=== PATIENT | male | born 1955 | race Caucasian/White ===

== ENCOUNTER 2018-11-09 17:43 | Emergency (ER) | payer OTHER ==
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
[2018-11-09 19:03] LABS: ABS Basophils 0 10^3/ul (0-0.2); ABS Eosinophils 0.1 10^3/ul (0-0.6); ABS Lymphocytes 1.5 10^3/ul (1.0-4.8); ABS Monocytes 0.5 10^3/ul (0-0.8); ABS Neutrophils 3.3 10^3/ul (1.5-7.7); ABS Nucleated RBC 0 10^3/ul; Eosinophil % 1.1 %; Hematocrit 43 % (42-52); Hemoglobin 14.6 g/dl (14.0-18.0); Lymphocyte % 28.2 %; Mean Corpuscular HGB Conc 34 g/dl (31-36); Mean Corpuscular Hemoglobin 31 pg (27-31); Mean Corpuscular Volume 92 fL (80-94); Mean Platelet Volume 7.9 fL (7.4-10.4); Nucleated Red Blood Cells % 0; Platelet Count 178 10^3/ul (150-450); Red Blood Count 4.69 10^6/ul (4.00-5.40); Red Cell Distribution Width 13 % (10.5-15); White Blood Count 5.4 10^3/ul (3.5-10.8)
[2018-11-09 19:18] LABS: ALT 17 U/L (7-52); AST 22 U/L (13-39); Albumin 4.4 g/dL (3.2-5.2); Albumin/Globulin Ratio 1.6 (1-3); Alkaline Phosphatase 64 U/L (34-104); Anion Gap 4 mmol/L (2-11); BUN/Creatinine Ratio 11.3 (8-20); Blood Urea Nitrogen 13 mg/dL (6-24); CO2 Carbon Dioxide 29 mmol/L (22-32); Calcium 9.1 mg/dL (8.6-10.3); Chloride 107 mmol/L (101-111); Creatine Kinase 200 U/L (10-223); EGFR African American 78.2 (>60); EGFR Non-African American 64.7 (>60); Globulin 2.8 g/dL (2-4); Glucose 108 mg/dL (70-100); Potassium 4.3 mmol/L (3.5-5.0); Sodium 140 mmol/L (135-145); Total Protein 7.2 g/dL (6.4-8.9)
[2018-11-09 19:22] LABS: CKMB ng/mL 5.6 ng/mL (0.6-6.3)
[2018-11-09 19:23] LABS: Troponin I 0.05 ng/mL (<0.04)
[2018-11-09] MEDS ORDERED: Metoprolol Tartrate TAB* 25 MG PO ONE (19:54)
[2018-11-09] MEDS ORDERED: Nitroglycerin TAB 0.4 MG* 0.4 MG TAB SL ONE (19:54)
[2018-11-09] MEDS ORDERED: Aspirin 81 mg CHEW TAB* 81 MG TAB.CHEW PO ONE (19:54)
[2018-11-09] MEDS ORDERED: Morphine VIAL* 10 MG/ML 1 ML VIAL IV ONE (20:24)
[2018-11-09 21:54] LABS: Troponin I 0.05 ng/mL (<0.04)
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
[2018-11-09 22:44] VITALS: BP 114/64
== END 2018-11-09 22:45 | disposition short-term general hospital (02) ==
LOC: ED 17:43
DX: J70.5 Respiratory conditions due to smoke inhalation (principal); R05 Cough; J02.9 Acute pharyngitis, unspecified; R07.9 Chest pain, unspecified; R50.9 Fever, unspecified; R00.2 Palpitations; R79.89 Other specified abnormal findings of blood chemistry
CPT/HCPCS: 36415; 71045; 80053; 82375; 82550; 82553; 82803; 83605; 83880; 84443; 84484; 85025; 93005; 96374; 99284; A9270-GY; J2270